=== PATIENT | male | born 1995 | race Caucasian/White ===

== ENCOUNTER 2017-01-23 00:22 | Emergency (ER) | payer SELFPAY ==
[2017-01-23] MEDS ORDERED: ONDANSETRON 4 MG/2 ML VIAL ONE (00:34)
[2017-01-23] MEDS ORDERED: NS 1,000 ML IV ONE (00:40)
[2017-01-23] MEDS ORDERED: ONDANSETRON 4 MG/2 ML VIAL IVP ONE (00:40)
--- NOTE | 2017-01-23 00:42 | EDPHY ---
H & P Stated Complaint: 30 min of RLQ pain, Pt has pale and nausea Time Seen by Provider: 01/23/17 00:31 HPI/ROS: Chief Complaint: Back pain, abdominal pain HPI: 21-year-old male had the sudden onset of right back pain to his right flank 45 minutes ago. Does not have a history of same. It is worse with any out of 10. Is not on a 3/10. Some nausea no vomiting. No recent injuries. No lifting. No falls. No urinary symptoms. No fevers or chills. Not worsened by movement but rather he is having difficulty finding a a comfortable position. ROS: 10 point Review of Systems is negative except as noted in the HPI. PMH: None Medications: None Allergies: None Social History: No smoking, occasional alcohol, daily marijuana Family History: Family history of kidney stones Physical Exam: Gen: Awake, Alert, No Distress HEENT: Nose: no rhinorrhea Eyes: PERRLA, EOMI Mouth: Moist mucosa Neck: Supple, no JVD Chest: nontender, lungs clear to auscultation Heart: S1, S2 normal, no murmur Abd: Soft, moderate tenderness right lower quadrant with voluntary guarding, no rebound Back: no CVA tenderness, no midline tenderness mild right flank tenderness Ext: no edema, non-tender Skin: no rash Neuro: CN II-XII intact, Sensation grossly intact, Strength 5/5 in bilateral upper and lower extremities - Personal History Current Tetanus Diphtheria and Acellular Pertussis (TDAP): Yes - Medical/Surgical History Hx Asthma: No Hx Chronic Respiratory Disease: No Hx Diabetes: No Hx Cardiac Disease: No Hx Renal Disease: No Hx Cirrhosis: No Hx Alcoholism: No Hx HIV/AIDS: No Hx Splenectomy or Spleen Trauma: No Other PMH: denies - Social History Smoking Status: Never smoked Constitutional: Initial Vital Signs Temperature (C) 36.5 C 01/23/17 00:25 Heart Rate 96 01/23/17 00:25 Respiratory Rate 18 01/23/17 00:25 Blood Pressure 120/81 H 01/23/17 00:25 O2 Sat (%) 97 01/23/17 00:25 O2 Delivery Mode Room Air Allergies/Adverse Reactions: No Known Allergies Allergy (Unverified 01/23/17 00:24) Home Medications: Medication Instructions Recorded NK [No Known Home Meds] 01/23/17 Medical Decision Making - Diagnostics Imaging Results: CT scan shows calcification in the right pelvis which is 4 x 3 x 3 mm consistent with a ureteral stone. Interpreted by Dr. Toscano Imaging: Discussed imaging studies w/ pillowcase cutter Radiologist ED Course/Re-evaluation: CT scan shows a calcification in the right pelvis consistent with a ureteral stone. Patient has hematuria. No evidence of infection at this time. He is pain free. Will discharge with analgesia instructions to follow up with his physician. It is size that he should be able to pass it. - Data Points Laboratory Results: Laboratory Results 01/23/17 00:35 01/23/17 00:35 01/23/17 01/23/17 01/23/17 01:35 00:35 00:35 WBC 8.24 10^3/uL 10^3/uL (3.80-9.50) RBC 4.96 10^6/uL 10^6/uL (4.40-6.38) Hgb 15.5 g/dL g/dL (13.7-17.5) Hct 41.4 % % (40.0-51.0) MCV 83.5 fL fL (81.5-99.8) MCH 31.3 pg pg (27.9-34.1) MCHC 37.4 g/dL H g/dL (32.4-36.7) RDW 12.3 % % (11.5-15.2) Plt Count 180 10^3/uL 10^3/uL (150-400) MPV 10.1 fL fL (8.7-11.7) Neut % (Auto) 58.3 % % (39.3-74.2) Lymph % (Auto) 30.0 % % (15.0-45.0) Carter % (Auto) 9.3 % % (4.5-13.0) Eos % (Auto) 1.7 % % (0.6-7.6) Baso % (Auto) 0.5 % % (0.3-1.7) Nucleat RBC Rel Count 0.0 % % (0.0-0.2) Absolute Neuts (auto) 4.80 10^3/uL 10^3/uL (1.70-6.50) Absolute Lymphs (auto) 2.47 10^3/uL 10^3/uL (1.00-3.00) Absolute Monos (auto) 0.77 10^3/uL 10^3/uL (0.30-0.80) Absolute Eos (auto) 0.14 10^3/uL 10^3/uL (0.03-0.40) Absolute Basos (auto) 0.04 10^3/uL 10^3/uL (0.02-0.10) Absolute Nucleated RBC 0.00 10^3/uL 10^3/uL (0-0.01) Immature Gran % 0.2 % % (0.0-1.1) Immature Gran # 0.02 10^3/uL 10^3/uL (0.00-0.10) Sodium 140 mEq/L mEq/L (134-144) Potassium 4.1 mEq/L mEq/L (3.5-5.2) Chloride 103 mEq/L mEq/L (97-110) Carbon Dioxide 21 mEq/l L mEq/l (22-31) Anion Gap 16 mEq/L mEq/L (8-16) BUN 11 mg/dL mg/dL (7-23) Creatinine 0.9 mg/dL mg/dL (0.7-1.3) Estimated GFR > 60 Glucose 86 mg/dL mg/dL (70-100) Calcium 10.6 mg/dL H mg/dL (8.5-10.4) Total Bilirubin 0.8 mg/dL mg/dL (0.1-1.4) Conjugated Bilirubin 0.2 mg/dL mg/dL (0.0-0.5) Unconjugated Bilirubin 0.6 mg/dL mg/dL (0.0-1.1) AST 67 IU/L H IU/L (17-59) ALT 66 IU/L IU/L (21-72) Alkaline Phosphatase 95 IU/L IU/L (38-126) Total Protein 8.0 g/dL g/dL (6.3-8.2) Albumin 5.1 g/dL H g/dL (3.5-5.0) Lipase 160.0 IU/L IU/L (23-300) Urine Color YELLOW Urine Appearance MODERATELY TURBID Urine pH 6.0 (5.0-7.5) Ur Specific [place] 1.023 (1.002-1.030) Urine Protein 2+ H (NEGATIVE) Urine Ketones NEGATIVE (NEGATIVE) Urine Blood 3+ H (NEGATIVE) Urine Nitrate NEGATIVE (NEGATIVE) Urine Bilirubin NEGATIVE (NEGATIVE) Urine Urobilinogen NEGATIVE EU EU (0.2-1.0) Ur Leukocyte Esterase NEGATIVE (NEGATIVE) Urine RBC 50-182 /hpf H /hpf (0-3) Urine WBC 1-3 /hpf /hpf (0-3) Ur Epithelial Cells TRACE /lpf /lpf (NONE-1+) Calcium Oxalate Crystal PRESENT /hpf /hpf (NONE-1+) Urine Mucus 2+ /lpf H /lpf (NONE-1+) Urine Glucose NEGATIVE (NEGATIVE) Medications Given: Discontinued Medications Sodium Chloride (Ns) 1,000 mls @ 0 mls/hr IV ONCE ONE PRN Reason: Wide Open Stop: 01/23/17 00:41 Last Admin: 01/23/17 00:43 Dose: 1,000 mls Ondansetron HCl (Zofran) 4 mg IVP EDNOW ONE Stop: 01/23/17 00:41 Last Admin: 01/23/17 00:59 Dose: 4 mg Departure - Departure Disposition: Home, Routine, Self-Care Clinical Impression: Kidney stone Condition: Good Instructions: Kidney Stones (ED) Additional Instructions: You may alternate ibuprofen with acetaminophen as needed for pain. If your pain gets severe you may take hydrocodone with acetaminophen. Follow up with your primary care physician in 3-4 days for re-evaluation. Strain your urine and collect the stone and take it to your physician in follow- up. Return to the emergency depart for increasing pain, nausea, vomiting, fevers, chills, or any other concerns. Referrals: TINY RHODES [Other] - As per Instructions
[2017-01-23 01:01] LABS: ALANINE AMINOTRANSFERASE 66 IU/L (21-72); ALBUMIN 5.1 g/dL (3.5-5.0); ALKALINE PHOSPHATASE 95 IU/L (38-126); ANION GAP 16 mEq/L (8-16); ASPARTATE AMINOTRANSFERASE 67 IU/L (17-59); BILIRUBIN,TOTAL 0.8 mg/dL (0.1-1.4); CALCIUM 10.6 mg/dL (8.5-10.4); CARBON DIOXIDE 21 mEq/l (22-31); CHLORIDE 103 mEq/L (97-110); CREATININE 0.9 mg/dL (0.7-1.3); GLOMERULAR FILTRATION RATE > 60; GLUCOSE 86 mg/dL (70-100); POTASSIUM 4.1 mEq/L (3.5-5.2); SODIUM 140 mEq/L (134-144)
[2017-01-23 01:13] LABS: BILIRUBIN-CONJUGATED 0.2 mg/dL (0.0-0.5); BILIRUBIN-UNCONJUGATED 0.6 mg/dL (0.0-1.1)
[2017-01-23 01:16] LABS: % IMMATURE GRANULYOCYTES 0.2 % (0.0-1.1); ABSOLUTE IMMATURE GRANULOCYTES 0.02 10^3/uL (0.00-0.10); ADD DIFF? NO; ADD MORPH? NO; ADD SCAN? NO; ATYPICAL LYMPHOCYTE FLAG 0 (0-99); FRAGMENT RBC FLAG 0 (0-99); HEMATOCRIT 41.4 % (40.0-51.0); HEMOGLOBIN 15.5 g/dL (13.7-17.5); LEFT SHIFT FLG 0 (0-99); LIPEMIA HEMOLYSIS FLAG 90 (0-99); MEAN CELL HEMOGLOBIN 31.3 pg (27.9-34.1); MEAN CELL HEMOGLOBIN CONCENTR. 37.4 g/dL (32.4-36.7); MEAN CELL VOLUME 83.5 fL (81.5-99.8); MEAN PLATELET VOLUME 10.1 fL (8.7-11.7); PLATELET CLUMPS FLAG 0 (0-99); PLATELET COUNT 180 10^3/uL (150-400); RED BLOOD CELL COUNT 4.96 10^6/uL (4.40-6.38); RED CELL DISTRIBUTION WIDTH 12.3 % (11.5-15.2)
[2017-01-23 02:06] LABS: COLOR YELLOW; LEUKOCYTE ESTERASE,URINE NEGATIVE (NEGATIVE); NITRITE,URINE NEGATIVE (NEGATIVE)
[2017-01-23 02:13] LABS: MUCUS 2+ /lpf (NONE-1+); RBC,URINE 50-182 /hpf (0-3)
[2017-01-23] MEDS ORDERED: HYDROCOD/APAP 5/325 PREPACK#6 BTL TAKEHOME ONE (02:35)
[2017-01-23 02:50] VITALS: BP 117/72; PULSE 55; RESP 16; TEMP 97.9; O2SAT 96
== END 2017-01-23 02:50 | disposition home or self-care (01) ==
DX: N20.0 Calculus of kidney (principal)
CPT/HCPCS: 96374; J2405

== ENCOUNTER 2017-01-23 08:20 | Emergency (ER) | payer SELFPAY ==
--- NOTE | 2017-01-23 08:51 | EDPHY ---
H & P Stated Complaint: was dx with kidney stones and doscharged 3 hours ago, back for pain managem Time Seen by Provider: 01/23/17 08:50 - Personal History Current Tetanus/Diphtheria Vaccine: Yes Current Tetanus Diphtheria and Acellular Pertussis (TDAP): Yes - Medical/Surgical History Hx Asthma: No Hx Chronic Respiratory Disease: No Hx Diabetes: No Hx Cardiac Disease: No Hx Renal Disease: No Hx Cirrhosis: No Hx Alcoholism: No Hx HIV/AIDS: No Hx Splenectomy or Spleen Trauma: No Other PMH: juan jzeferino on daily basis - Social History Smoking Status: Never smoked Constitutional: Initial Vital Signs Temperature (C) 36 C 01/23/17 08:30 Heart Rate 68 01/23/17 08:30 Respiratory Rate 16 01/23/17 08:30 O2 Sat (%) 98 01/23/17 08:30 O2 Delivery Mode Room Air O2 (L/minute) 2 Allergies/Adverse Reactions: No Known Allergies Allergy (Unverified 01/23/17 00:24) Home Medications: Medication Instructions Recorded Hydrocodone/Acetaminophen [Vicodin 01/23/17 5-300 mg Tablet] Tamsulosin HCl [Flomax 0.4 MG (*)] 0.4 mg PO DAILY #10 cap 01/23/17 Medical Decision Making ED Course/Re-evaluation: CHIEF COMPLAINT: Kidney stone HISTORY OF PRESENT ILLNESS: This 21-year-old male presents to the Emergency Department for the second time today for persistent right flank pain and hematuria beginning at [address] of the abdomen and pelvis obtained at 100 today was suggestive of a right ureteral stone though without hydroureter. He was discharged home with oxycodone to use as needed for severe pain. He presents to the ED now because his pain has not been effectively ameliorated using the oxycodone as prescribed. At time of presentation, he describes his pain as waxing and waning, severe, and localized to his right flank with radiation to the RLQ of his abdomen. He denies any additional complaints; no fever or chills. No pertinent medical history. REVIEW OF SYSTEMS: A 10 point review of systems was performed and is negative with the exception of the elements mentioned in the history of present illness. PHYSICAL EXAM: HR 68, O2 Sat 98%, RR 16. Temp noted at 36C. General Appearance: Alert, well hydrated, appropriate, and non-toxic appearing. Head: Atraumatic without scalp tenderness or obvious injury Eyes: Pupils equal, round, reactive to light and accommodation, EOMI, no trauma , no injection. Ears: Clear bilaterally, no perforation, normal landmarks Nose: Atraumatic, no rhinorrhea, clear. Throat: There is no erythema or exudates, no lesions, normal tonsils, mucus membranes moist. Neck: Supple, 2+ carotid upstroke, nontender, no lymphadenopathy. Respiratory: No retractions, no distress, no wheezes, and no accessory muscle use. Lungs are clear to auscultation bilaterally. Cardiovascular: Regular rate and rhythm, no murmurs, rubs, or gallops. Bilateral carotid, radial, dorsalis pedis, and posterior tibial pulses intact. Good capillary refill all extremities. Gastrointestinal: Abdomen is soft, nontender, non-distended, no masses, no rebound, no guarding, no peritoneal signs. Musculoskeletal: Normal active ROM of all extremities, atraumatic. Neurological: Alert, appropriate, and interactive. The patient has normal DTRs and non-focal cranial nerves, motor, sensory, and cerebellar exam. Skin: No rashes, good turgor, no nodules on palpation. Past medical history: Denies. Past surgical history: Denies. Family history: Non-contributory. Social history: Student. Smokes marijuana regularly. Family lives locally. DIFFERENTIAL DIAGNOSIS: The differential diagnosis for the patient's flank pain included but was not limited to musculoskeletal causes, kidney stone, pyelonephritis, shingles, diverticulitis, appendicitis, and aortic aneurysm. MEDICAL DECISION MAKIN-year-old male presents with complaint of persistent severe right flank pain secondary to a right ureteral stone that was apparent on CT obtained at 100 this morning. Calcification is 4 x 3 x 3mm and should therefore pass on its own. The patient will require treatment for pain but no additional intervention at this time. 100mcg IN Fentanyl administered at time of presentation given severity of pain. IV established. 1L IV NS and 30mg IV Toradol administered. 0.4mg PO Flomax administered. The patient reported significant improvement to his pain until 1130 when the pain returned. 4mg IV Zofran and 2 tabs PO oxycodone administered. Will reevaluate. 1348: At time of reevaluation, the patient is feeling much better following administration of oxycodone. His mother is now at bedside and is concerned about the patient's ability to pass the stone prior to their scheduled trip to [place] in 6 days. I will consult with urology at her request. 1355: Consultation with Dr. Georges De La Torre, urologist, who will perform a cystoscopic removal and will see the patient in his office at [facility]. - Data Points Medications Given: Discontinued Medications Fentanyl (Sublimaze) 100 mcg NASAL EDNOW ONE Stop: 01/23/17 08:56 Last Admin: 01/23/17 08:55 Dose: 100 mcg Sodium Chloride (Ns) 1,000 mls @ 0 mls/hr IV ONCE ONE PRN Reason: Wide Open Stop: 01/23/17 09:14 Last Admin: 01/23/17 09:19 Dose: 1,000 mls Ketorolac Tromethamine (Toradol) 30 mg IVP EDNOW ONE Stop: 01/23/17 09:14 Last Admin: 01/23/17 09:18 Dose: 30 mg Ondansetron HCl (Zofran) 4 mg IVP EDNOW ONE Stop: 01/23/17 11:46 Last Admin: 01/23/17 11:53 Dose: 4 mg Oxycodone/Acetaminophen (Percocet 5/325) 2 tab PO EDNOW ONE Stop: 01/23/17 11:48 Last Admin: 01/23/17 12:23 Dose: 0.5 tab Tamsulosin HCl (Flomax) 0.4 mg PO EDNOW ONE Stop: 01/23/17 11:31 Last Admin: 01/23/17 12:23 Dose: 0.4 mg Departure - Departure Disposition: Home, Routine, Self-Care Clinical Impression: Right ureteral stone Condition: Good Instructions: Kidney Stones (ED) Additional Instructions: Go directly to Dr. De La Torre's office as we discussed. His office is located at : [address] [place] [id number]. You have been provided with a script for Flomax to help pass the stone should you not proceed with surgical intervention. For pain management, take up to two tabs of Percocet every 4-6 hours as prescribed. Return to the Emergency Department with severe pain, fever or chills, or for other serious concerns. Referrals: Cabrera De La Torre MD [Medical Doctor] - As per Instructions Prescriptions: Tamsulosin HCl [Flomax 0.4 MG (*)] 0.4 mg PO DAILY #10 cap Report Scribed for: Ajay Ivan Report Scribed by: Harika Sarabia Date of Report: 01/23/17 Time of Report: 09:35
[2017-01-23] MEDS ORDERED: fentaNYL 100 MCG/2 ML INJ ONE (08:54)
[2017-01-23] MEDS ORDERED: fentaNYL 100 MCG/2 ML INJ NASAL ONE (08:55)
[2017-01-23] MEDS ORDERED: NS 1,000 ML IV ONE (09:13)
[2017-01-23] MEDS ORDERED: KETOROLAC 30 MG/1 ML SDV IVP ONE (09:13)
[2017-01-23] MEDS ORDERED: TAMSULOSIN HCL 0.4 MG CAP PO ONE (11:30)
[2017-01-23] MEDS ORDERED: ONDANSETRON 4 MG/2 ML VIAL IVP ONE (11:45)
[2017-01-23] MEDS ORDERED: OXYCODONE/APAP 5/325 TAB PO ONE (11:47)
[2017-01-23] MEDS ORDERED: OXYCODONE/APAP 5/325 TAB ONE (12:51)
[2017-01-23 14:20] VITALS: BP 105/65; PULSE 79; RESP 16; TEMP 98.2; O2SAT 96
== END 2017-01-23 14:18 | disposition home or self-care (01) ==
DX: N20.1 Calculus of ureter (principal)
CPT/HCPCS: 96374; J1885; J2405; J3010